=== PATIENT | female | born 1955 | race Caucasian/White ===

== ENCOUNTER → 2017-08-02 | Outpatient (CLI) | payer OTHER ==
[~2017-08-02] MED LIST: ALE70 PO; AMP500 PO; ASC500 PO; AUG500 PO; AUG875 PO; BRIM5DRO7 OD; CALC-762 PO; CALC-904 PO; CHOL4PAC15 PO; CIP500 PO; CIPR-245 PO; CIPR-344 PO; CLOB15CR22 TP; COLC0.6T2 PO; DOXY150T6 PO; DOXY20PT PO; ESTR42.59 VG; ESZO2TAB30 PO; EZE10 PO; FLU100 PO; HYDR-2954 PO; HYDR-3072 PO; IBUP-1618; IBUP-1618 PO; LANS30CA70 PO; LATA2.5D5 OU; LEVO150T72 PO; METR45CR10 TP; MULT1CAP43 PO; ONDA4TAB PO; OXYC-865 PO; OXYIR; PENTA500PT PO; PER PO; PRAM15FO9 TP; PRO25 PO; TRAM-420 PO; TRIO80T TOP; URS300 PO; VITA-192 PO; ZOL5 PO; [UNRECOGNIZED DRUG - CODE] PO; [UNRECOGNIZED DRUG - CODE] PO; [UNRECOGNIZED DRUG - CODE] TP; [UNRECOGNIZED DRUG - CODE] TP; [UNRECOGNIZED DRUG - OTHER] TD
--- NOTE | 2017-08-02 17:48 | RADIOLOGY IMAGING REPORT ---
FACILITY: [facility] PATIENT NAME: Dominik Robledo : 1955 MR: [id number] V: [id number] EXAM DATE: ORDERING PHYSICIAN: LEE GAR TECHNOLOGIST: Location: [facility] Patient: Dominik Robledo : 1955 Visit/Account:[id number] Date of Sevice: 08/02/2017 EXAMINATION: VENOUS DOPP LOW RIGHT EXTREMIT COMPARISON: None Available HISTORY: Right thigh pain. FINDINGS: Standard right lower extremity Doppler ultrasound with color flow and spectral analysis is performed. The common femoral, femoral, and popliteal veins are widely patent and compress appropriately. The v isualized calf veins and the proximal greater saphenous vein are patent. No popliteal fluid collection. The contralateral common femoral vein is patent. IMPRESSION: No right lower extremity deep venous thrombosis. Report Dictated By: Denis Millan MD at 08/02/2017 5:42 PM Report E-Signed By: Denis Millan MD at 08/02/2017 5:45 PM WSN:[id number]
== END ==
LOC: RAD 16:36
PROVIDERS: ATTEND Physician Assistant Medical
DX: M79.651 Pain in right thigh (principal)

== ENCOUNTER → 2017-09-05 | Outpatient (CLI) | payer OTHER ==
[2017-09-05 11:46] LABS: INR 0.95
== END ==
LOC: LAB 10:26
PROVIDERS: ATTEND Physician Assistant
DX: K83.0 Cholangitis (principal); L29.9 Pruritus, unspecified; K52.9 Noninfective gastroenteritis and colitis, unspecified; I85.10 Secondary esophageal varices without bleeding; K74.60 Unspecified cirrhosis of liver
CPT/HCPCS: 36415; 82040; 82105; 82247; 82310; 82374; 82435; 82565; 82947; 84075; 84132; 84155; 84295; 84450; 84460; 84520; 85027; 85610; 86301

== ENCOUNTER → 2017-09-05 | Outpatient (CLI) | payer OTHER ==
--- NOTE | 2017-09-05 16:20 | RADIOLOGY IMAGING REPORT ---
FACILITY: [facility] PATIENT NAME: Dominik Robledo : 1955 MR: [id number] V: [id number] EXAM DATE: ORDERING PHYSICIAN: KAM RAMOS TECHNOLOGIST: Location: [facility] Patient: Dominik Robledo : 1955 Visit/Account:[id number] Date of Sevice: 09/05/2017 BONE MINERAL DENSITY HISTORY: RAD COMPARISON: DEXA 06/07/2014 FINDINGS: LUMBAR SPINE: Bone mineral density (BMD) measured from L1-L4 correlates with a Z-score of 0.5 and a T-score of -0.9 which is normal as defined by the World Health Organization. The corresponding risk of fracture in the lumbar spine is 2X compared with a young adult reference population. This value has decreased by 5.7% since the prior study. More than 5% change is considered significant. HIP: Bone mineral density (BMD) measured in the left total hip region correlates with a Z-score of 0.2 and a T-score of -0.9 which is normal as defined by the World Health Organization. The corresponding ri sk of fracture in the hip is 2X compared with a young adult reference population. This value has dec reased by 1.5% since the prior study. More than 5% change is considered significant. Bone mineral density (BMD) measured in the left Femoral Neck region measures 0.896 g/cm2. IMPRESSION: 1. Lumbar spine: Normal. There has been significant decrease in the bone mineral density since the previous exam. 2. Left Total Hip: Normal. There has been no significant change in the bone mineral density since the previous exam. 3. Left Femoral Neck: Bone Mineral Density is 0.896 g/cm2. The next DEXA scan of this patient should include the following sites: L1-L4, left hip. FRAX? WHO Fracture Risk Assessment Tool link: <http://www.shef.ac.uk/FRAX/tool.jsp?locationValue=9> PLEASE NOTE: 1) The World Health Organization defines low BMD as follows: T-score Normal > -1 Osteopenia < -1 and > -2.5 Osteoporosis < -2.5 without fractures Established osteoporosis < -2.5 with fractures 2) In general, you may wish to consider: Diagnosis Treatment Follow-up DEXA Normal BMD Prevention 2-3 years Osteopenia Prevention/therapy 1-2 years Osteoporosis Therapy Yearly 3) Fracture risk estimated from the T-score is more accurate for vertebral fractures (often spontane ous) than for hip fractures. Report Dictated By: Randell Torres DO at 09/05/2017 4:13 PM Report E-Signed By: Randell Torres DO at 09/05/2017 4:14 PM WSN:[email or web address]
--- NOTE | 2017-09-06 11:07 | RADIOLOGY IMAGING REPORT ---
FACILITY: [facility] [place] PATIENT NAME: JOSE LUIS LLANES : [id number] MR: [id number] V: [id number] EXAM DATE: ORDERING PHYSICIAN: KAM RAMOS TECHNOLOGIST: Priyanka Solis PROCEDURE:BILATERAL DIGITAL SCREENING MAMMOGRAM WITH CAD ASSISTED INTERPRETATION & 3D TOMOSYNTHESIS COMPARISON:Prior mammograms 06/12/15 & 08/25/16 INDICATIONS:screening FINDINGS: The breast tissue demonstrates scattered fibroglandular densities. There is no dominant mass, suspicious cluster of microcalcifications or persistent areas of architectural distortion. DIAGNOSTIC CATEGORY 1--NEGATIVE. RECOMMENDATIONS: ROUTINE MAMMOGRAM AND CLINICAL EVALUATION. IMPRESSION: BIRADS 1: Negative Recommend the patient resumes screening mammography in 1 year. Dictated by: Kaiden Valencia M.D. on 09/06/2017 at 8:50 Transcribed by: ANNALEE on 09/06/2017 at 10:35 Approved by: Kaiden Valencia M.D. on 09/06/2017 at 11:05 [facility]
== END ==
LOC: MAMO 00:56
PROVIDERS: ATTEND Family Medicine
DX: Z13.820 Encounter for screening for osteoporosis (principal); Z12.31 Encounter for screening mammogram for malignant neoplasm of breast
CPT/HCPCS: 77063; 77067; 77080

== ENCOUNTER → 2017-09-29 | Outpatient (CLI) | payer OTHER ==
--- NOTE | 2017-09-29 14:03 | RADIOLOGY IMAGING REPORT ---
FACILITY: [facility] [place] PATIENT NAME: Dominik Robledo : 1955 MR: [id number] V: [id number] EXAM DATE: ORDERING PHYSICIAN: NICKO MILAN TECHNOLOGIST: Location: [facility] [place] Patient: Dominik Robledo : 1955 Visit/Account:[id number] Date of Sevice: 09/29/2017 Exam type: TOE RIGHT FOOT GREAT TOE History: Pain in right great toe, tripped over dog this morning Comparison: October 19, 2008. Findings: There is no evidence of acute fracture-dislocation involving the right great toe. There is soft tiss ue swelling present. Incidentally noted are mild to moderate joint changes involving the right first metatarsophalangeal joint IMPRESSION: 1. Soft tissue spine about the right great toe although no definite fracture or dislocation seen Degenerative changes right first MTP joint Report Dictated By: Angélica Good MD at 09/29/2017 1:55 PM Report E-Signed By: Angélica Good MD at 09/29/2017 1:58 PM WSN:[email or web address]
== END ==
LOC: RAD 11:12
PROVIDERS: ATTEND Physician Assistant
DX: M19.071 Primary osteoarthritis, right ankle and foot (principal)

== ENCOUNTER → 2017-10-14 | Outpatient (REF) ==
[2017-10-14 08:33] LABS: LDL CHOLESTEROL 137 mg/dl
== END ==
DX: Z02.9 Encounter for administrative examinations, unspecified (principal)

== ENCOUNTER → 2018-05-19 | Outpatient (CLI) | payer MEDICARE, OTHER | LOC: LAB 11:33 | PROVIDERS: ATTEND Family Medicine | DX: E03.9 Hypothyroidism, unspecified (principal) | CPT/HCPCS: 36415; 84443 ==

== ENCOUNTER → 2018-07-12 | Outpatient (REF) ==
[2018-07-12 09:17] LABS: LDL CHOLESTEROL 139 mg/dl
== END ==
DX: Z02.9 Encounter for administrative examinations, unspecified (principal)

== ENCOUNTER → 2018-08-11 | Outpatient (CLI) | payer MEDICARE, OTHER ==
[2018-08-11 08:31] LABS: PLATELET COUNT, AUTOMATED 130 K/uL (150-450)
[2018-08-11 08:39] LABS: INR 0.94
== END ==
LOC: LAB 07:59
PROVIDERS: ATTEND Internal Medicine Gastroenterology
DX: K83.01 Primary sclerosing cholangitis (principal)
CPT/HCPCS: 36415; 82040; 82247; 82310; 82374; 82435; 82565; 82947; 84075; 84132; 84155; 84295; 84450; 84460; 84520; 85025; 85610

== ENCOUNTER → 2018-09-14 | Outpatient (CLI) | payer OTHER, MEDICARE ==
[2018-09-14 11:40] LABS: PLATELET COUNT, AUTOMATED 147 K/uL (150-450)
[2018-09-14 12:03] LABS: INR 0.96
== END ==
LOC: LAB 11:10
PROVIDERS: ATTEND Internal Medicine Gastroenterology
DX: K83.01 Primary sclerosing cholangitis (principal)
CPT/HCPCS: 36415; 82040; 82247; 82310; 82374; 82435; 82565; 82947; 84075; 84132; 84155; 84295; 84450; 84460; 84520; 85025; 85610

== ENCOUNTER → 2018-11-06 | Outpatient (CLI) | payer OTHER, MEDICARE ==
[2018-11-06 08:51] LABS: PLATELET COUNT, AUTOMATED 146 K/uL (150-450)
[2018-11-06 08:58] LABS: INR 0.94
== END ==
LOC: LAB 08:28
PROVIDERS: ATTEND Internal Medicine Gastroenterology
DX: K83.01 Primary sclerosing cholangitis (principal)
CPT/HCPCS: 36415; 82040; 82247; 82310; 82374; 82435; 82565; 82947; 84075; 84132; 84155; 84295; 84450; 84460; 84520; 85025; 85610

== ENCOUNTER → 2018-12-05 | Outpatient (CLI) | payer MEDICARE, OTHER ==
--- NOTE | 2018-12-06 13:01 | RADIOLOGY IMAGING REPORT ---
FACILITY: [facility] [place] PATIENT NAME: JOSE LUIS LLANES : [id number] MR: [id number] V: [id number] EXAM DATE: [id number] ORDERING PHYSICIAN: KAM RAMOS TECHNOLOGIST: Jeannine Pink PROCEDURE: BILATERAL DIGITAL SCREENING MAMMOGRAM WITH CAD ASSISTED INTERPRETATION & 3D TOMOSYNTHESIS REASON FOR STUDY: Screening. COMPARISON: 09/05/2017, 08/25/2016, 06/12/2015. VIEWS OBTAINED: 2D & 3D full field CC & MLO. BREAST DENSITY: Scattered fibroglandular densities. MAMMOGRAM FINDINGS: There is no dominant mass, suspicious cluster of microcalcifications or persistent areas of architectural distortion. IMPRESSION: BIRADS 1: Negative. DIAGNOSTIC CATEGORY 1--NEGATIVE. RECOMMENDATIONS: ROUTINE MAMMOGRAM AND CLINICAL EVALUATION. Dictated by: Kaiden Valencia M.D. on 12/06/2018 at 10:09 Transcribed by: ANNALEE on 12/06/2018 at 11:03 Approved by: Kaiden Valencia M.D. on 12/06/2018 at 12:59 [facility]
== END ==
LOC: MAMO 01:07
PROVIDERS: ATTEND Family Medicine
DX: Z12.31 Encounter for screening mammogram for malignant neoplasm of breast (principal)
CPT/HCPCS: 77063; 77067